=== PATIENT | male | born 1950 | race Caucasian/White ===

== ENCOUNTER 2017-08-11 09:49 | Emergency (ER) | payer OTHER, MEDICARE ==
[~2017-08-11] VITALS: Ht 170.2 cm; Wt 73.0 kg
[~2017-08-11 09:49] MED LIST: ASPI81 PO; ATOR40TA49 PO; CARV3.125 PO; CLOP75 PO
[2017-08-11 09:54] VITALS: BP 128/65; PULSE 90; RESP 16; TEMP 99.3; O2SAT 95
[2017-08-11] MEDS ORDERED: CARV6.252 PO (10:16)
[2017-08-11] MEDS ORDERED: TRAM50TA PO (10:16)
[2017-08-11] MEDS ORDERED: CLOP75TA PO (10:16)
[2017-08-11] MEDS ORDERED: ASPI81CH CHEW (10:16)
[2017-08-11] MEDS ORDERED: ARTIDRO EACH EYE (10:16)
[2017-08-11] MEDS ORDERED: FINA5TAB2 PO (10:16)
[2017-08-11] MEDS ORDERED: BUTA1CAP PO (10:16)
[2017-08-11] MEDS ORDERED: ISOS30TA3 PO (10:16)
[2017-08-11] MEDS ORDERED: ALFU10TA2 PO (10:16)
[2017-08-11] MEDS ORDERED: GABA300C5 PO (10:16)
[2017-08-11] MEDS ORDERED: ROSU1TAB10 PO (10:16)
[2017-08-11] MEDS ORDERED: NITR1SUB3 SL (10:17)
--- NOTE | 2017-08-11 10:23 | PD ---
HPI Chief Complaint: Cold / Flu Symptoms Time Seen by Provider: 10:11 Travel History International Travel<30 days: No Contact w/Intl Traveler<30days: No Traveled to known affect area: No History of Present Illness HPI This 67-year-old man is complaining of cough and congestion. He's been sick for 2 or 3 days. He is coughing up thick yellow phlegm. He does not smoke cigarettes. He smokes cigars occasionally. His is a similar illness. He complains of generalized malaise and myalgias PFSH Past Medical History Hx Anticoagulant Therapy: No Anxiety: Yes Cardiovascular Problems: Yes Myocardial Infarction: Yes Past Surgical History Coronary Stent: Yes (X1) Social History Alcohol Use: Yes (ONCE A WEEK) Tobacco Use: Yes (OCC CIGAR) Substance Use: No Allergies-Medications (Allergen,Severity, Reaction): Coded Allergies: ciprofloxacin (Verified Adverse Reaction, Intermediate, STOMACH ISSUES, ) Reported Meds & Prescriptions Reported Meds & Active Scripts Active Reported Nitroglycerin SL (Nitroglycerin) 0.4 Mg Subl 0.4 Mg SL DIRECTED PRN ONE TABLET UNDER THE TONGUE NEEDED FOR CHEST PAIN, MAY REPEAT EVERY FIVE MINUTES FOR A TOTAL OF 3 DOSES OR CALL 911 IF NO RELIEF Finasteride 5 Mg Tab 5 Mg PO DAILY Do not crush. Tramadol (Tramadol HCl) 50 Mg Tab 50 Mg PO Q4H PRN Rosuvastatin (Rosuvastatin Calcium) 40 Mg Tab 40 Mg PO DAILY Isosorbide Mononitrate ER (Isosorbide Mononitrate) 30 Mg Magnolia 30 Mg PO DAILY Gabapentin 300 Mg Cap 300 Mg PO HS Clopidogrel (Clopidogrel Bisulfate) 75 Mg Tab 75 Mg PO DAILY Carvedilol 6.25 Mg Tab 6.25 Mg PO BID Aspirin 81 Mg Chew 81 Mg CHEW DAILY Artificial Tears Opth Drops (Propylene Glycol-Glycerin Opth Drops) 1-0.3% Drops 1-2 Drop EACH EYE PRN PRN Alfuzosin ER 24 HR 10 Mg Tab 10 Mg PO DAILY Fioricet (Rszkogvhhh-Zsvypvezmlcgm-Kdhaebfn) 50-300-40 Mg Cap 1 Cap PO Q4H PRN Review of Systems General / Constitutional: Positive: Fever, Chills Eyes: No: Diploplia, Blurred Vision HENT: Positive: Rhinitis, No: Headaches, Vertigo Cardiovascular: No: Chest Pain or Discomfort Respiratory: Positive: Cough, Shortness of Breath Gastrointestinal: No: Vomiting, Diarrhea Genitourinary: No: Urgency, Frequency Musculoskeletal: Positive: Myalgias Skin: No Rash, No Itching Psychiatric: No: Anxiety Physical Exam Narrative GENERAL: Well-developed male SKIN: Focused skin assessment warm/dry. HEAD: Atraumatic. Normocephalic. EYES: Pupils equal and round. No scleral icterus. No injection or drainage. ENT: No nasal bleeding or discharge. Mucous membranes pink and moist. Posterior pharynx erythematous without exudate NECK: Trachea midline. No JVD. CARDIOVASCULAR: Regular rate and rhythm. No murmur appreciated. RESPIRATORY: No accessory muscle use. There are occasional rhonchi Breath sounds equal bilaterally. GASTROINTESTINAL: Abdomen soft, non-tender, nondistended. Hepatic and splenic margins not palpable. MUSCULOSKELETAL: No obvious deformities. No clubbing. No cyanosis. No edema. NEUROLOGICAL: Awake and alert. No obvious cranial nerve deficits. Motor grossly within normal limits. Normal speech. PSYCHIATRIC: Appropriate mood and affect; insight and judgment normal. Data Data Last Documented VS Vital Signs Date Time Temp Pulse Resp B/P (MAP) Pulse Ox O2 Delivery O2 Flow Rate FiO2 08/11/17 09:54 99.3 90 16 128/65 (86) 95 Orders Orders Influenzae A/B Antigen (08/11/17 10:17) Chest, Pa & Lat (08/11/17 10:17) MDM Medical Decision Making Medical Screen Exam Complete: Yes Emergency Medical Condition: Yes Medical Record Reviewed: Yes Differential Diagnosis Differential includes upper respiratory infection, bronchitis, pneumonia, influenza Narrative Course Test for influenza is negative. Chest x-ray is negative. Impression is acute bronchitis Diagnosis Primary Impression: Acute bronchitis Scripts Azithromycin (Zithromax Z-Korey) 250 Mg Dspk 250 MG PO DIRECTED for Infection, #1 DSPK 0 Refills 500 MG (2 tabs) day 1, then 1 tab days 2-5. Prov: Anthony Breen MD 08/11/17 Disposition: 01 DISCHARGE HOME Condition: Stable Anthony Breen MD Aug 11, 2017 10:23
--- NOTE | 2017-08-11 11:09 | RADRPT ---
EXAM DATE/TIME: 08/11/2017 10:37 [facility] COMPARISON: No previous studies available for comparison. INDICATIONS : Cough, chest tightness. MEDICAL HISTORY : Myocardial infarction. SURGICAL HISTORY : Coronary artery stent. ENCOUNTER: Initial ACUITY: 4 - 6 days PAIN SCORE: 1/10 LOCATION: Bilateral chest FINDINGS: PA and lateral views of the chest demonstrate the lungs to be symmetrically aerated without evidence of mass, infiltrate or effusion. The cardiomediastinal contours are unremarkable. Osseous structure s are intact. CONCLUSION: 1. No acute cardiopulmonary disease. Michael Hunter MD on August 11, 2017 at 11:07 Board Certified Radiologist. This report was verified electronically.
[2017-08-11] MEDS ORDERED: ZITHTAB PO (11:44)
== END 2017-08-11 11:56 | disposition home or self-care (01) ==
LOC: PHED 09:49
DX: J20.9 Acute bronchitis, unspecified (principal); R53.81 Other malaise; M79.1 Myalgia; I25.2 Old myocardial infarction; Z72.0 Tobacco use; Z86.59 Personal history of other mental and behavioral disorders; Z86.79 Personal history of other diseases of the circulatory system
CPT/HCPCS: 71020; 87804; 99283